=== PATIENT | female | born 2000 | race Caucasian/White ===

== ENCOUNTER 2022-12-25 13:57 | Inpatient (IN) ==
[2022-12-25 18:46] LABS: Urine Benzodiazepine Screen None Detected (None Detect); Urine Cannabinoids Screen Presumptive Positive (None Detect); Urine Opiates Screen None Detected (None Detect)
[2022-12-25 19:02] LABS: ABS Lymphocytes 1.9 10^3/uL (1.0-4.8); ABS Monocytes 0.4 10^3/uL (0.0-0.9); ABS Neutrophils 3.7 10^3/uL (1.5-7.6); ABS Nucleated RBC 0.01 10^3/ul; Eosinophil % 0.5 %; Hematocrit 40.3 % (35-45); Hemoglobin 14.2 g/dL (11.5-14.3); Lymphocyte % 31.2 %; Mean Corpuscular Hemoglobin 31.5 pg (27-33); Mean Corpuscular Hgb Conc 35.2 g/dL (31-36); Mean Corpuscular Volume 89.3 fL (80-97); Mean Platelet Volume 7.7 fL (7.5-11.2); Nucleated Red Blood Cells % 0.2 /100 WBC (0.0-0.4); Platelet Count 252 10^3/uL (150-450); Red Blood Count 4.51 10^6/uL (3.63-4.92); Red Cell Distribution Width 12.7 % (12-17); White Blood Count 6.1 10^3/uL (3.8-11.8)
[2022-12-25 19:25] LABS: HCG Pregnancy < 0.60 mIU/mL
[2022-12-25 19:30] LABS: ALT 6 U/L (7-52); AST 18 U/L (13-39); Albumin 4.6 g/dL (3.2-5.2); Albumin/Globulin Ratio 1.6 (1-3); Alkaline Phosphatase 60 U/L (35-149); Anion Gap 8 mmol/L (2-16); Blood Urea Nitrogen 11 mg/dL (6-24); CO2 Carbon Dioxide 24 mmol/L (22-32); Calcium 9.7 mg/dL (8.6-10.3); Chloride 106 mmol/L (101-111); Creatinine, Serum 0.64 mg/dL (0.51-0.95); Globulin 2.9 g/dL (2-4); Glucose 90 mg/dL (70-100); Potassium 3.6 mmol/L (3.5-5.0); Sodium 138 mmol/L (135-145); Total Protein 7.5 g/dL (6.4-8.9); eGFR CKD-EPI 128.9 (>60)
[2022-12-25] MEDS ORDERED: Al Hydrox/Mg Hydrox/Simet LIQ 30 ML UDC PO PRN (22:55)
[2022-12-26] MEDS: Nicotine GUM 2MG FRUIT FLAVOR PO PRN ×2 (09:33→16:37)
[2022-12-26] MEDS: Vitamin THERAPEUTIC TAB PO SCH (09:35)
[2022-12-26] MEDS: Nicotine PATCH 14 MG/24 HR PATCH TRANSDERM SCH (09:35)
[2022-12-26 13:10] LABS: Magnesium 1.9 mg/dL (1.9-2.7)
[2022-12-26 13:29] LABS: TSH Ultra Thyroid Stim Horm 1.66 mcIU/mL (0.34-5.60)
[2022-12-27] MEDS: Vitamin THERAPEUTIC TAB PO SCH (10:33)
[2022-12-27] MEDS: Nicotine PATCH 14 MG/24 HR PATCH TRANSDERM SCH (10:33)
[2022-12-27] MEDS: Nicotine GUM 2MG FRUIT FLAVOR PO PRN (15:06)
[2022-12-28] MEDS: Nicotine PATCH 14 MG/24 HR PATCH TRANSDERM SCH (13:01)
[2022-12-28] MEDS: Vitamin THERAPEUTIC TAB PO SCH (13:01)
[2022-12-28] MEDS: Nicotine GUM 2MG FRUIT FLAVOR PO PRN (19:23)
[2022-12-29 07:58] LABS: HDL Cholesterol 63.2 mg/dL
[2022-12-29] MEDS: Vitamin THERAPEUTIC TAB PO SCH (09:09)
[2022-12-29] MEDS: Nicotine PATCH 14 MG/24 HR PATCH TRANSDERM SCH (09:09)
[2022-12-29] MEDS: Nicotine GUM 2MG FRUIT FLAVOR PO PRN (20:23)
[2022-12-30] MEDS: Nicotine PATCH 14 MG/24 HR PATCH TRANSDERM SCH (08:00)
[2022-12-30] MEDS: Vitamin THERAPEUTIC TAB PO SCH (08:00)
[2022-12-31] MEDS: Vitamin THERAPEUTIC TAB PO SCH (09:57)
[2022-12-31] MEDS: Nicotine PATCH 14 MG/24 HR PATCH TRANSDERM SCH (09:57)
[2022-12-31] MEDS: Nicotine GUM 2MG FRUIT FLAVOR PO PRN (09:58)
[2022-12-31 12:20] VITALS: BP 131/72
[2022-12-31 15:32] LABS: ABS Eosinophils 0.1 10^3/uL (0.0-0.5); ABS Monocytes 0.6 10^3/uL (0.0-0.9); ABS Neutrophils 3.4 10^3/uL (1.5-7.6); Eosinophil % 1.6 %; Hematocrit 41.7 % (35-45); Hemoglobin 14.6 g/dL (11.5-14.3); Lymphocyte % 32.7 %; Mean Corpuscular Hemoglobin 31.9 pg (27-33); Mean Corpuscular Hgb Conc 34.9 g/dL (31-36); Mean Corpuscular Volume 91.1 fL (80-97); Mean Platelet Volume 7.8 fL (7.5-11.2); Platelet Count 274 10^3/uL (150-450); Red Blood Count 4.58 10^6/uL (3.63-4.92); White Blood Count 6.1 10^3/uL (3.8-11.8)
[2022-12-31 16:30] LABS: Albumin 4.5 g/dL (3.2-5.2); Albumin/Globulin Ratio 1.5 (1-3); Calcium 9.9 mg/dL (8.6-10.3); Creatinine, Serum 0.67 mg/dL (0.51-0.95); Phosphorus 3.9 mg/dL (2.5-5.0); Potassium 4.2 mmol/L (3.5-5.0); Total Bilirubin 0.5 mg/dL (0.2-1.0); Total Protein 7.5 g/dL (6.4-8.9); eGFR CKD-EPI 127.4 (>60)
== END 2022-12-31 17:23 | disposition home or self-care (01) | DRG 756 ==
LOC: ED 13:57 → EDHOLD 22:23 → BSU 23:17
PROVIDERS: ADMIT Psychiatry & Neurology Psychiatry; ATTEND Psychiatry & Neurology Psychiatry